=== PATIENT | male | born 1985 | race Caucasian/White ===

== ENCOUNTER 2021-08-03 08:15 | Day surgery (SDC) | payer OTHER ==
[2021-08-03] VITALS (158 sets, daily range): BP systolic 77–157; BP diastolic 44–88
[~2021-08-03] VITALS: Ht 188 cm; Wt 64.0 kg
[2021-08-03 08:44] LABS: HEMATOCRIT 40.6 % (39.0-50.0); IMMATURE GRANULOCYTES 0.4 % (0.0-5.0); MEAN CELL VOLUME 90.2 fL CALC (80.0-100.0); MEAN CORPUSCULAR HGB 28.9 pG CALC (26.0-32.0); NEUT# 4.25 thou/uL (1.82-7.42); RED BLOOD COUNT 4.5 mill/uL (4.70-6.10)
[2021-08-03 09:14] LABS: ALBUMIN 4.6 g/dL (3.2-5.0); ALKALINE PHOSPHATASE 101 u/l (38-126); ANION GAP 16 (6-22 (CALC)); BILIRUBIN, TOTAL 0.5 mg/dL (0.0-1.4); BUN 14 mg/dL (9-20); BUN/CREATININE RATIO 15 (12-20 (CALC)); CARBON DIOXIDE 25 mmol/l (22-30); CHLORIDE 105 mmol/l (95-108); CREATININE 0.9 mg/dL (0.7-1.3); GFR FOR AFR.AMER. > 60 ML/MIN (>=60 (CALC)); GFR OTHER RACES > 60 ML/MIN (>=60 (CALC)); POTASSIUM 4.4 mmol/l (3.5-5.1); SGOT/AST 26 u/l (17-59); SODIUM 141 mmol/l (137-146); TOTAL PROTEIN 7.9 g/dL (6.3-8.2)
[2021-08-04 02:50] VITALS: BP 133/64
[2021-08-04 06:28] LABS: ALKALINE PHOSPHATASE 83 u/l (38-126); ANION GAP 13 (6-22 (CALC)); BILIRUBIN, TOTAL 0.4 mg/dL (0.0-1.4); BUN 14 mg/dL (9-20); BUN/CREATININE RATIO 18 (12-20 (CALC)); CARBON DIOXIDE 23 mmol/l (22-30); CHLORIDE 105 mmol/l (95-108); CREATININE 0.8 mg/dL (0.7-1.3); GFR FOR AFR.AMER. > 60 ML/MIN (>=60 (CALC)); GFR OTHER RACES > 60 ML/MIN (>=60 (CALC)); MAGNESIUM 1.8 mg/dL (1.6-2.3); POTASSIUM 3.7 mmol/l (3.5-5.1); SGOT/AST 18 u/l (17-59); SODIUM 138 mmol/l (137-146)
[2021-08-04 06:35] LABS: ALBUMIN 3.5 g/dL (3.2-5.0); TOTAL PROTEIN 6.1 g/dL (6.3-8.2)
[2021-08-04 07:40] VITALS: BP 140/63
[2021-08-04 08:56] VITALS: BP 140/63
== END 2021-08-04 16:19 | disposition home or self-care (01) | DRG 897 ==
LOC: ANR 08:15 → MS2 08:16 → ANR 08-04 16:19
PROVIDERS: ATTEND Anesthesiology
DX: F11.20 Opioid dependence, uncomplicated (principal)
CPT/HCPCS: J2060; J2354

== ENCOUNTER 2022-04-10 07:18 | Day surgery (SDC) | payer OTHER ==
[~2022-04-10] VITALS: Ht 188 cm; Wt 63.4 kg
[2022-04-10] VITALS (229 sets, daily range): BP systolic 90–142; BP diastolic 45–91
[2022-04-10 10:38] LABS: BASO% 0.2 % (0-3); HEMATOCRIT 34.7 % (39.0-50.0); IMMATURE GRANULOCYTES 0.6 % (0.0-5.0); LYMPH% 19.4 % (15-41); MEAN CELL VOLUME 90.4 fL CALC (80.0-100.0); MEAN CORPUSCULAR HGB 28.4 pG CALC (26.0-32.0); MEAN CORPUSCULAR HGB CONC 31.4 g/dL CAL (32.0-36.0); MONO% 6.2 % (2-13); NEUT# 6.6 thou/uL (1.82-7.42); NEUT% 72.6 % (42-76); RED BLOOD COUNT 3.84 mill/uL (4.70-6.10); RED CELL DISTRI WIDTH 13.7 % (11.5-15.5)
[2022-04-10 10:49] LABS: HEMOGLOBIN 10.9 g/dl (14.0-18.0)
[2022-04-10 10:58] LABS: ALBUMIN 4.1 g/dL (3.2-5.0); ALKALINE PHOSPHATASE 67 u/l (38-126); BUN 9 mg/dL (9-20); BUN/CREATININE RATIO 10 (12-20 (CALC)); CHLORIDE 107 mmol/l (95-108); CREATININE 0.9 mg/dL (0.7-1.3); GFR FOR AFR.AMER. > 60 ML/MIN (>=60 (CALC)); GFR OTHER RACES > 60 ML/MIN (>=60 (CALC)); POTASSIUM 4.2 mmol/l (3.5-5.1); SGOT/AST 23 u/l (17-59); SODIUM 139 mmol/l (137-146); TOTAL PROTEIN 6.8 g/dL (6.3-8.2)
[2022-04-10 10:59] LABS: ANION GAP 7 (6-22 (CALC)); BILIRUBIN, TOTAL 0.2 mg/dL (0.2-1.3); CARBON DIOXIDE 29 mmol/l (22-30)
[2022-04-10] MEDS ORDERED: NALTREXONE50 MG PO (17:01)
[2022-04-10] MEDS ORDERED: CLONIDINE0.1 MG PO (17:02)
[2022-04-10] MEDS ORDERED: KLONOPIN2 MG PO (17:02)
[2022-04-11 03:54] VITALS: BP 112/66
[2022-04-11 06:02] LABS: BASO% 0.2 % (0-3); HEMATOCRIT 32.7 % (39.0-50.0); HEMOGLOBIN 10.7 g/dl (14.0-18.0); IMMATURE GRANULOCYTES 0.3 % (0.0-5.0); LYMPH% 11.8 % (15-41); MEAN CELL VOLUME 86.5 fL CALC (80.0-100.0); MEAN CORPUSCULAR HGB 28.3 pG CALC (26.0-32.0); MEAN CORPUSCULAR HGB CONC 32.7 g/dL CAL (32.0-36.0); MONO% 1.8 % (2-13); NEUT# 7.9 thou/uL (1.82-7.42); NEUT% 85.9 % (42-76); RED BLOOD COUNT 3.78 mill/uL (4.70-6.10); RED CELL DISTRI WIDTH 13.5 % (11.5-15.5)
[2022-04-11 06:20] LABS: ALBUMIN 4.3 g/dL (3.2-5.0); ALKALINE PHOSPHATASE 72 u/l (38-126); BUN 7 mg/dL (9-20); BUN/CREATININE RATIO 9 (12-20 (CALC)); CHLORIDE 110 mmol/l (95-108); CREATININE 0.8 mg/dL (0.7-1.3); GFR FOR AFR.AMER. > 60 ML/MIN (>=60 (CALC)); GFR OTHER RACES > 60 ML/MIN (>=60 (CALC)); MAGNESIUM 2.2 mg/dL (1.6-2.3); POTASSIUM 3.6 mmol/l (3.5-5.1); SGOT/AST 33 u/l (17-59); SODIUM 141 mmol/l (137-146)
[2022-04-11 06:21] LABS: ANION GAP 12 (6-22 (CALC)); BILIRUBIN, TOTAL 0.4 mg/dL (0.2-1.3); CARBON DIOXIDE 23 mmol/l (22-30)
[2022-04-11 08:00] VITALS: BP 116/60
[2022-04-11 09:13] VITALS: BP 116/60
== END 2022-04-11 13:25 | disposition home or self-care (01) | DRG 897 ==
LOC: ANR 07:18 → MS2 07:18 → ANR 04-11 13:25 → MS2 04-11 13:25
PROVIDERS: ATTEND Anesthesiology Critical Care Medicine
DX: F11.20 Opioid dependence, uncomplicated (principal)
CPT/HCPCS: J2354; J3475